=== PATIENT | male | born 1930 | race Caucasian/White ===

== ENCOUNTER 2017-01-17 17:17 | Emergency (ER) | payer MEDICARE, OTHER ==
[~2017-01-17 17:17] MED LIST: AMLO-218 PO; ASPI81TA3 PO; ATOR20TA38 PO; CYAN500T21 PO; DOCU250C58 PO; DONE5TAB32 PO; ESCI10TA PO; FOLI-49 PO; FURO40TA4 PO; MEMA5TAB PO; NAPR-688 PO; POTA10TA97 PO; ROSU20TA PO; TAMS0.4C2 PO
--- NOTE | 2017-01-17 17:35 | ERA ---
ER Documentation Chief Complaint Date/Time DATE: 01/17/17 TIME: 17:34 Chief Complaint James catheter irritation HPI The patient is a 86-year-old male, presenting to the ER wanting to have the James catheter removed. He was seen by his urologist this morning who inserted a James catheter. He denies fever, chills, neck pain, chest pain, abdominal pain, vomiting. He does not smoke nor drink Past medical history: BPH, dementia, dyslipidemia ROS All systems reviewed and are negative except as per history of present illness. Medications Home Meds Active Scripts Donepezil* (Aricept*) 5 Mg Tablet, 5 MG PO DAILY, #30 TAB Prov:ALFREDO MADISON MD 02/07/14 Memantine* (Namenda*) 5 Mg Tab, 5 MG PO BID for 90 Days, TAB 3 Refills Prov:ALFREDO MADISON MD 02/07/14 Reported Medications Potassium Chloride (Klor-Con) 10 Meq Tablet.sa, 8 MEQ PO DAILY, TAB.SA 02/05/14 Furosemide (Lasix) 40 Mg Tab, 40 MG PO DAILY, TAB 02/05/14 Atorvastatin Calcium* (Atorvastatin Calcium*) 20 Mg Tablet, 20 MG PO HS, TAB 02/05/14 Aspirin* (Aspirin* Chew) 81 Mg Tab.chew, 81 MG PO DAILY, TAB.CHEW 02/05/14 Folic Acid* (Folic Acid*) 1 Mg Tablet, 1 MG PO DAILY, TAB 02/05/14 Amlodipine Besylate* (Norvasc*) 10 Mg Tablet, 10 MG PO DAILY, TAB 02/05/14 Cyanocobalamin* (Vitamin B-12*) 500 Mcg Tablet.sa, 500 MCG PO DAILY, TAB 02/05/14 Tamsulosin Hcl* (Tamsulosin Hcl*) 0.4 Mg Cap.er.24h, 0.4 MG PO DAILY, CAP 02/05/14 Rosuvastatin Calcium* (Crestor*) 20 Mg Tablet, 20 MG PO HS, TAB 02/05/14 Escitalopram Oxalate* (Lexapro*) 10 Mg Tablet, 10 MG PO DAILY, TAB 02/05/14 Docusate Sodium* (Colace*) 250 Mg Capsule, 550 MG PO DAILY, CAP 02/05/14 Naproxen* (Naproxen*) 500 Mg Tablet, 500 MG PO Q12 Y for PAIN, TAB 02/05/14 Allergies Allergies: Coded Allergies: No Known Allergy (Unverified , 06/03/11) PMhx/Soc History of Surgery: Yes (APPENDECTOMY) Anesthesia Reaction: No Hx Neurological Disorder: No Hx Respiratory Disorders: No Hx Cardiac Disorders: No Hx Psychiatric Problems: No Hx Miscellaneous Medical Probl: No Hx Alcohol Use: No Hx Substance Use: No Hx Tobacco Use: No Physical Exam Physical Exam Const: No acute distress. Head: Atraumatic. Eyes: Normal Conjunctiva. ENT: Normal External Ears, Nose and Mouth. Neck: Full range of motion. No meningismus. Resp: Clear to auscultation bilaterally. Cardio: Regular rate and rhythm. Abd: Soft, non distended, normal bowel sounds, non tender. Skin: No petechiae or rashes. Back: No midline or flank tenderness. Ext: No cyanosis, or edema. Neur: Awake and alert. No focal deficit Psych: Demented Procedures/MDM MEDICAL MAKING DECISION: The patient is a 86-year-old male, presenting to the ER because of James irritation. After convincing him through the son and he agreed to keep the catheter. The leg bag was changed for his discomfort The differential diagnoses considered include but are not limited to urinary retention, cystitis, pyelonephritis, malignancy, BPH Departure Diagnosis: Primary Impression: Encounter for urinary catheter Condition: Good Comments I discussed the findings with the patient. I advised the patient to follow-up with his urologist in about 1-2 days, sooner if needed and return if any concern. JONATHON LAWSON MD Jan 17, 2017 17:35
== END 2017-01-17 18:07 | disposition home or self-care (01) ==
LOC: E/R 17:17
DX: Z46.6 Encounter for fitting and adjustment of urinary device (principal); R40.2142 Coma scale, eyes open, spontaneous, at arrival to emergency department; R40.2242 Coma scale, best verbal response, confused conversation, at arrival to emergency department; R40.2352 Coma scale, best motor response, localizes pain, at arrival to emergency department; Z79.82 Long term (current) use of aspirin
CPT/HCPCS: 99282

== ENCOUNTER 2017-11-25 17:45 | Inpatient (IN) | END 2017-11-26 18:00 | disposition home or self-care (01) | DRG 700 ==